=== PATIENT | female | born 1950 | race American Indian/Alaskan Native ===

== ENCOUNTER 2016-08-24 14:49 | Emergency (ER) | payer MEDICARE, OTHER ==
--- NOTE | 2016-08-24 16:27 | Emergency Department Report ---
ED General Adult HPI - General Chief complaint: Syncope Stated complaint: FAINTED Time Seen by Provider: 08/24/16 16:19 Source: patient, family, EMS (ems notes not available at time of chart dictation), RN notes reviewed Mode of arrival: Stretcher Limitations: Physical Limitation - History of Present Illness Initial comments: This is a 66-year-old female. She is previously unknown to me. Her primary care doctor is Dr. Mason. Past medical history includes diabetes and hypertension. The patient presents to ER with bilateral knee pain and abrasion, and left ankle pain. The patient reports that she was walking, and then missed a step, twisted her left ankle, and landed on her knees. Prior to the event, there was no headache, neck pain, chest pain, abdominal pain, shortness of breath or diaphoresis. The patient can't recall her last tetanus vaccination. The pain is achy, and increases with palpation and decreases with rest. The patient indicates that passers by told her that she passed out. However, she has no recollection of this event. The patient indicates that she has no chest pain, shortness of breath, diaphoresis, does not take control tablets, no recent surgeries, no recent periods of immobility, no posterior leg pain, no recent trips greater than 4 hours. -: Sudden Location: left, right, lower extremity Quality: aching Improves with: rest Worsens with: movement Associated Symptoms: denies: confusion, chest pain, cough, diaphoresis, fever/ chills, headaches, loss of appetite, malaise, nausea/vomiting, rash, shortness of breath, weakness - Related Data Previous Rx's Medication Instructions Recorded Last Taken Type Bacitracin Zinc [Antibiotic] 1 applic TP QID #1 oint...g. 08/24/16 Unknown Rx Ibuprofen [Motrin] 600 mg PO Q8H PRN #30 tablet 08/24/16 Unknown Rx Magnesium Oxide 400 mg PO QDAY #10 tablet 08/24/16 Unknown Rx Allergies Allergy/AdvReac Type Severity Reaction Status Date / Time Penicillins Allergy Rash Verified 08/24/16 15:45 ED Review of Systems ROS: Stated complaint: FAINTED Other details as noted in HPI Constitutional: denies: fever, malaise Eyes: denies: vision change ENT: denies: epistaxis Respiratory: denies: cough Cardiovascular: denies: chest pain Gastrointestinal: denies: vomiting Genitourinary: denies: urgency, dysuria Musculoskeletal: arthralgia, myalgia Skin: denies: lesions Neurological: denies: weakness Psychiatric: anxiety ED Past Medical Hx - Past Medical History Hx Hypertension: Yes Hx Diabetes: Yes - Social History Smoking Status: Never Smoker Substance Use Type: None - Medications Home Medications: Home Medications Medication Instructions Recorded Confirmed Last Taken Type Bacitracin Zinc [Antibiotic] 1 applic TP QID #1 oint...g. 08/24/16 Unknown Rx Ibuprofen [Motrin] 600 mg PO Q8H PRN #30 tablet 08/24/16 Unknown Rx Magnesium Oxide 400 mg PO QDAY #10 tablet 08/24/16 Unknown Rx ED Physical Exam - General Limitations: No Limitations, Physical Limitation General appearance: alert, in no apparent distress - Head Head exam: Present: atraumatic, normocephalic - Eye Eye exam: Present: normal appearance, PERRL, EOMI, other (visual acuity intact to finger counting, contraception, reading at a close distance). Absent: nystagmus - ENT ENT exam: Present: normal exam, normal orophraynx, mucous membranes moist, normal external ear exam - Neck Neck exam: Present: normal inspection, full ROM. Absent: tenderness, meningismus - Respiratory Respiratory exam: Present: normal lung sounds bilaterally. Absent: respiratory distress, wheezes, rales, rhonchi, stridor, chest wall tenderness, accessory muscle use, decreased breath sounds, prolonged expiratory - Cardiovascular Cardiovascular Exam: Present: regular rate, normal rhythm, normal heart sounds. Absent: bradycardia, tachycardia, irregular rhythm, systolic murmur, diastolic murmur, rubs, gallop - GI/Abdominal GI/Abdominal exam: Present: soft, normal bowel sounds. Absent: distended, tenderness, guarding, rebound, rigid, pulsatile mass - Extremities Exam Extremities exam: Present: tenderness (the pelvis is nontender. There are 2+ pulses in 4 extremities. The compartments are soft. The knees are tender in the anterior regions, and there are superficial bilateral knee abrasions. Patient has left ankle tenderness on the lateral and medial malleolus. There is no joint instability.), normal capillary refill. Absent: calf tenderness - Back Exam Back exam: Present: normal inspection, full ROM. Absent: tenderness, CVA tenderness (R), CVA tenderness (L), muscle spasm, paraspinal tenderness, vertebral tenderness - Neurological Exam Neurological exam: Present: alert, oriented X3, other (Extraocular movements intact. Tongue midline. No facial droop. Facial sensation intact to light touch in the V1, V2, V3 distribution bilaterally. 5 and 5 strength in 4 extremities.. Sensation is intact to light touch in 4 extremities.). Absent: motor sensory deficit - Psychiatric Psychiatric exam: Present: normal affect, normal mood - Skin Skin exam: Present: warm, abrasion. Absent: rash ED Course Vital Signs 08/24/16 08/24/16 08/24/16 15:41 16:41 19:30 Temperature 98.3 F Pulse Rate 74 70 Respiratory 16 16 16 Rate Blood Pressure 128/68 Blood Pressure 160/79 [Left] O2 Sat by Pulse 100 99 Oximetry - Reevaluation(s) Reevaluation #1: 08/24/16 17:53 differential diagnosis: Knee abrasion, knee fracture, knee dislocation, arrhythmia, structural cardiac disease, orthostasis, vagal event, ankle fracture, ankle dislocation, superficial abrasions Assessment and plan: 66-year-old female with mechanical fall, left knee pain, right knee pain, left ankle pain, no fracture or dislocation noted on plain films. No pulmonary embolus or DVT risk factors, low risk by well's criteria, low risk by YING score, low risk by heart score. The patient has a GCS of 15, with an NIH score of 0. The patient is observed in the ER for a few hours. No episodes of arrhythmias are noted. Her EKG is morphologically abnormal without prior for comparison. However given her clinical history and the context of events, I don't that the patient requires admission to the hospital, and I would consider her low risk by traditional syncope and decision making insurance. Her case is presented to the van driver helper on-call, Dr. Tyler, who agrees that patient is suitable follow-up as an outpatient for her abnormal EKG. The patient is instructed to not drive a car for the next 6 months unless cleared by either a primary care doctor or water pollution specialist. ED Medical Decision Making - Lab Data Result diagrams: 08/24/16 16:45 08/24/16 16:45 Vital Signs 08/24/16 08/24/16 15:41 16:41 Temperature 98.3 F Pulse Rate 74 Respiratory 16 16 Rate Blood Pressure 128/68 O2 Sat by Pulse 100 Oximetry Lab Results 08/24/16 08/24/16 08/24/16 Range/Units 16:45 16:45 16:58 WBC 9.1 (4.5-11.0) K/mm3 RBC 3.85 (3.65-5.03) M/mm3 Hgb 10.3 (10.1-14.3) gm/dl Hct 32.0 (30.3-42.9) % MCV 83 (79-97) fl MCH 27 L (28-32) pg MCHC 32 (30-34) % RDW 14.3 (13.2-15.2) % Plt Count 192 (140-440) K/mm3 PT (12.2-14.9) Sec. INR (0.87-1.13) Sodium 139 (137-145) mmol/L Potassium 4.6 (3.6-5.0) mmol/L Chloride 103.2 (98-107) mmol/L Carbon Dioxide 19 L (22-30) mmol/L Anion Gap 21 mmol/L BUN 16 (7-17) mg/dL Creatinine 0.9 (0.7-1.2) mg/dL Estimated GFR > 60 ml/min BUN/Creatinine Ratio 17.77 % Glucose 199 H (65-100) mg/dL Calcium 8.8 (8.4-10.2) mg/dL Magnesium 1.60 L (1.7-2.3) mg/dL TSH 0.376 (0.270-4.200) mlU/mL 08/24/16 Range/Units 16:59 WBC (4.5-11.0) K/mm3 RBC (3.65-5.03) M/mm3 Hgb (10.1-14.3) gm/dl Hct (30.3-42.9) % MCV (79-97) fl MCH (28-32) pg MCHC (30-34) % RDW (13.2-15.2) % Plt Count (140-440) K/mm3 PT 12.4 (12.2-14.9) Sec. INR 0.93 (0.87-1.13) Sodium (137-145) mmol/L Potassium (3.6-5.0) mmol/L Chloride (98-107) mmol/L Carbon Dioxide (22-30) mmol/L Anion Gap mmol/L BUN (7-17) mg/dL Creatinine (0.7-1.2) mg/dL Estimated GFR ml/min BUN/Creatinine Ratio % Glucose (65-100) mg/dL Calcium (8.4-10.2) mg/dL Magnesium (1.7-2.3) mg/dL TSH (0.270-4.200) mlU/mL - EKG Data -: EKG Interpreted by Me EKG shows normal: sinus rhythm Rate: normal - EKG Data When compared to previous EKG there are: previous EKG unavailable 08/24/16 17:56 sinus bradycardia, 57 beats minute, normal axis, QTC 455 ms, T- wave inversion in V2, Q wave noted in 3 and aVF, not consistent with STEMI, there is no prior for comparison. - Radiology Data Radiology results: image reviewed interpreted by me: Ankle x-ray demonstrates no fracture or dislocation, DJD is noted, A little knee x-ray demonstrates no fracture or dislocation. DJD is noted. Critical care attestation.: If time is entered above; I have spent that time in minutes in the direct care of this critically ill patient, excluding procedure time. ED Disposition Clinical Impression: Ankle pain, Knee pain, bilateral Disposition: DISCHARGED TO HOME OR SELFCARE Is pt being admited?: No Does the pt Need Aspirin: No Condition: Stable Instructions: Ankle Sprain (ED), Syncope (ED) Additional Instructions: X-rays of the ankle and knee did not demonstrate obvious fracture or dislocation. A formal radiology interpretation will be made within the next 24 hours. Have your primary care doctor or private orthopedic surgeon contact medical records department to obtain full radiology interpretations. Rarely, radiologist and/ or change the initial ER x-ray interpretation. rest and avoid heavy lifting. Avoid strenuous physical activity. Take the pain medication, antibiotic ointment as directed, wash lesions with gentle soap and water every 8-12 hours. Use the crutches as directed, weight- bear as tolerated, follow-up with either your primary care doctor or orthopedist for your ankle and leg pain within the next week to 10 [address]. [address] a car or operate motor vehicles and was cleared by a van driver helper. I have specifically discussed her case with the on-call van driver helper, Dr. Tyler, who would like to see you in office within the next week. Please contact his office to arrange a follow-up appointment. Dr Mattson and Dr Basilio are also local cardiology specialists Return to the ER right away with new pain, worsened pain, migration of pain, fevers or chills, intractable nausea and vomiting, recurrent loss of consciousness, chest pain or shortness of breath. Prescriptions: Bacitracin Zinc [Antibiotic] 1 applic TP QID #1 oint...g. Ibuprofen [Motrin] 600 mg PO Q8H PRN #30 tablet PRN Reason: Pain Magnesium Oxide 400 mg PO QDAY #10 tablet Referrals: PRIMARY CARE, [Primary Care Provider] - 3-5 Days KARINA LUTHER MD [Staff Physician] - 3-5 Days ELAINA MATTSON MD [Staff Physician] - 3-5 Days MANAS HAYES MD [Staff Physician] - 3-5 Days CAROL JOHNSON MD [Staff Physician] - 3-5 Days
[2016-08-24] MEDS ORDERED: BOOSTRIX IM ONE (17:06)
[2016-08-24] MEDS ORDERED: ANTIBIOTIC OINT TP ONE (17:06)
[2016-08-24] MEDS ORDERED: TORADOL IM ONE (17:06)
[2016-08-24 17:25] LABS: Hemoglobin 10.3 gm/dl (10.1-14.3); Mean Corpuscular HGB Conc 32 % (30-34); Mean Corpuscular Hemoglobin 27 pg (28-32); Mean Corpuscular Volume 83 fl (79-97); Platelet Count 192 K/mm3 (140-440); Red Blood Count 3.85 M/mm3 (3.65-5.03); Red Cell Distribution Width 14.3 % (13.2-15.2); White Blood Count 9.1 K/mm3 (4.5-11.0)
[2016-08-24 17:27] LABS: Anion Gap 21 mmol/L; BUN/Creatinine Ratio 17.77; Blood Urea Nitrogen 16 mg/dL (7-17); Calcium 8.8 mg/dL (8.4-10.2); Carbon Dioxide 19 mmol/L (22-30); Chloride 103.2 mmol/L (98-107); Glucose 199 mg/dL (65-100); Potassium 4.6 mmol/L (3.6-5.0); Sodium 139 mmol/L (137-145)
[2016-08-24 17:41] LABS: INR 0.93 (0.87-1.13)
[2016-08-24] MEDS ORDERED: MAG-OX PO ONE (17:55)
--- NOTE | 2016-08-24 18:03 | XRay Report ---
FINAL REPORT EXAM: XR KNEE BILAT 1-2V HISTORY: b/l knee pain TECHNIQUE: Bilateral knees two views left hand two views right PRIORS: None. FINDINGS: No fracture is identified. No dislocation seen. No evidence of joint effusion. Patella demonstrates normal positioning. No acute bony abnormality identified. 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
[2016-08-24] MEDS ORDERED: TRIPLE ANTIBIOTIC TP ONE (18:31)
[2016-08-24] MEDS ORDERED: TORADOL ONE (18:32)
[2016-08-24 19:37] VITALS: BP 160/79
--- NOTE | 2016-08-25 09:41 | XRay Report ---
LEFT ANKLE, 3 views: History: Left ankle pain after fall. Bone mineralization is normal. No acute osseous abnormality or joint pathology is identified. The soft tissues are unremarkable. IMPRESSION: Normal study.
== END 2016-08-24 19:37 | disposition home or self-care (01) ==
LOC: ED 14:49
DX: M25.561 Pain in right knee (principal); M25.562 Pain in left knee; M25.572 Pain in left ankle and joints of left foot; I10 Essential (primary) hypertension; E11.9 Type 2 diabetes mellitus without complications; Z88.0 Allergy status to penicillin
CPT/HCPCS: 29515; 36415; 73560; 73610; 80048; 83735; 84443; 85027; 85610; 90471; 90715; 93005; 93010; 96372; 99285; J1885; A6250